=== PATIENT | female | born 1980 | race Caucasian/White ===

== ENCOUNTER → 2016-09-21 | Outpatient (CLI) | payer MEDICAID ==
[~2016-09-21] MED LIST: ADVAIR 250/5028 PUFF IN; ANTIVERT GENERI25 MG PO; CIPRO 500MG TA500 MG PO; CITALOPRAM10 MG PO; FLEXERIL10 MG PO; HYDROXYZINE 25M25 MG PO; KEFLEX 500MG.500 MG PO; LEVSIN/SL0.125 MG SL; LORTAB 5/500 501 TAB PO; LORTAB 500 MG-71 TAB PO; NO HOME MEDS; PREDNISONE 20MG20 MG PO; PYRIDIUM 200MG200 MG PO; ROBAXIN-750750 MG PO; TESSALON PERLE100 MG PO; VENTOLIN H0.09 MG/AC IH; VISTARIL25 MG PO; ZITHROMAX Z PA250 MG PO; ZITHROMAX Z-PA250 M1 PO; ZITHROMAX Z-PA250 M2 PO; ZOFRAN 8MG TABLE8 MG PO; ZOFRAN ODT4 MG PO
--- NOTE | 2016-09-23 13:46 | RADIOLOGY REPORT PS360 ---
US THYROID HISTORY: Follow-up thyroid nodules THYROID NODULE ORDERING PHYSICIAN: Theodore Guzman MD PATIENT AGE: 36 years COMPARISON: 10/10/2015 FINDINGS: The right lobe is 4.6 x 1.6 x 2.4 cm. The left lobe is 4.9 x 1.8 x 2.4 cm. There are multiple nodules on the right including 4 mm cyst mid aspect, 4 mm hypoechoic nodule mid aspect, 4 mm cyst mid aspect, 6 mm hypoechoic nodule inferiorly. There is a 1 cm area of decreased echogenicity along the posterior aspect of the lower pole on the right not demonstrated previously. This is ill-defined may only be due to an area of heterogeneous echogenicity as opposed to a nodule. Probably unchanged. Left lobe: 3 cm hypoechoic nodules inferiorly, 5 mm hypoechoic nodule superiorly, 12 mm hypoechoic nodule posteriorly not readily demonstrated on previous exam but may have been present and not identified. There is a 3 mm hypoechoic nodule in isthmus. IMPRESSION: Multinodular goiter overall not significant change considering difference in scanning technique. Continued 6 month follow-up recommended.
== END ==
LOC: RAD 10:51
DX: E04.1 Nontoxic single thyroid nodule (principal)

== ENCOUNTER → 2017-02-28 | Emergency (ER) | payer MEDICAID ==
[~2017-02-28] VITALS: Ht 180.3 cm; Wt 129.3 kg
[~2017-02-28] MED LIST changes: +BACTRIM DS 8001 TA1 PO; +BENADRYL 50MG C50 MG PO
--- NOTE | 2017-02-28 16:08 | Urgent Treatment Center Report ---
History of Present Issue Date/Time Seen by Provider 02/28/17 1550 Visit Reason Pt arrived:Walked Presenting Problem:PT STATES RASH TO BOTH LEGS THAT BEGAN A WEEK AGO. Location if Accident: Onset of symptoms date/time:/ or onset unknown for:MEDICAL HX UNKNOWN Have you (or family members/close friends) recently traveled outside the [place]? N If Yes, where/when: Have you had exposure to infectious disease within the past month? TB? Other? Specify: c/o mahsa LE redness, swelling, pain and sores x 1 week "this time". Hx of recurrent cellulitis pt reports "for the last year". Last time approx 1 month ago. Typically unilateral "and never this bad". Has cephalexin at home and has been taking it 4x/day x 3-4 days already w/ continue progression of symptoms. Denies fever, aches, chill but + malaise. "I just don't feel good". Denies SOA, CP. Denies any past medical history or current medications other than asthma and rescue inhaler. Reporting DM testing multiple times in the past but "always negative". No known injury. Source patient Exam Limitations no limitations ALLERGIES Coded Allergies: Penicillins (PASSED OUT 08/22/16) Home Medications Reported Medications ALBUTEROL (Ventolin Hfa) 1 PUFF IH Q6H6 History Medical History General CAD? No Angina: No NE: No Hypertension? No Hyperlipidemia? No CHF? No DVT? No PE? No COPD? No Asthma? Yes Anemia? No GERD? No Gastric ulcers? No GI Bleed? No Hernia? No Thyroid Problems? No Hypothyroidism? No CVA? No Seizures? Yes Diabetes? No Renal Insuffiency? No UTI? No Stones? No BPH? No GB Disease: No Nephritic Syndrome? No Asplenia? No Hepatitis? No Sickle Cell Disease? No Arthritis? No Migraines? No Cataracts? No Glaucoma? No MRSA? No HIV? No TB? No Anxiety? No Depression? No Cancer? No More? No Immunization HX DT/Tetanus 1-4 Years Ago Flu NEVER Pneumonia NEVER Surgical Hx Previous Surgery?Y X 1 DENTAL SURGERY Family History Family HX Diabetes Yes CAD No Hypertension Yes Hyperlipidemia Yes Cancer Yes TB No Social History Smoking Hx Smoker: Never Smoker Tobacco: No Alcohol Alcohol: No Review of Systems All Other Systems Reviewed and Negative Constitutional see HPI Respiratory see HPI Cardiovascular see HPI, edema (right worse than left) Gastrointestinal denies abdominal pain, nausea, denies vomiting Musculoskeletal denies joint pain, denies joint swelling, muscle pain ("my legs just ache") Skin see HPI Psychiatric/Neurological denies numbness, denies tingling Physical Exam Vital Signs Vital Signs Date Time Temp Pulse Resp B/P Pulse O2 O2 Flow FiO2 Ox Delivery Rate 02/28 1559 97.9 75 18 152/73 98 General Appearance no apparent distress, obese Respiratory Status No: respiratory distress. Cardiovascular regular rate/rhythm, no peripheral edema, no murmur Peripheral Pulses Pulses normal Yes (PT/DP) Extremities BLE (knee down) w/ generalized redness w/ left worse, generalized swelling w/ right worse, generalized tenderness, both hot to touch, 2-3mm erythematous patches similiar to healing folliculitis, 2mm folliculitis right anterior carney soft. fluctuate, thick drainage present at site Strength 5 Lower Ext (L), 5 Lower Ext (R) Neurologic alert, no motor/sensory deficits, oriented x 3 Mental status normal mood/affect Skin see extremity Medical Decision Making LABS/Meds/Orders Pt receiving controlled substance in ED? No Results/Orders Laboratory Tests 02/28/17 1620: Sodium 140, Potassium 3.5, Chloride 107, Carbon Dioxide 26, BUN 9, Creatinine 0.9, Estimated Creat Clear 175, Estimated GFR (MDRD) 70, Glucose 143 H, Calcium 8.0 L, WBC 6.8, RBC 3.99 L, Hgb 12.1 L, Hct 35.8 L, MCV 89.8, RDW 14.1, Plt Count 191, MPV 7.8, Gran % 72.4, Gran # 5.0, Lymphocytes % 19.6, Monocytes % 5.9 , Eosinophils % 1.8, Basophils % 0.3, Lymphocytes # 1.3, Monocytes # 0.4, Eosinophils # 0.1, Basophils # 0.0, PUBS MCHC 33.9, MCH 30.4 Orders Procedure Date/time Status VENOUS LOWER EXT MAHSA 02/28 1609 Complete CBC WITH AUTO DIFF 02/28 1609 Complete BASIC METABOLIC PROFILE 02/28 1609 Complete Consult MD Physician Consult 1 Consult/PCP Dr. Reyes, ER MD Time Called 1600 Reason Pt. Condition Comments CBC, BMP, venous doppler then will rediscuss pt and if admission necessary Physician Consult 2 Consult/PCP AMAN Khalil at PCP's office Time Called 1700 Reason Pt. Condition Comments Returned call at 1714. Discussed PMHx provided by patient, current symptoms, exam and current findings in clinic. Add bactrim to keflex and have patient FU in clinic Tuesday at 1pm. Progress [facility] Progress Notes Date 02/28/17 Time 1631 Comment pt returned from [place]. Neg for SVT & DVT BLE. Departure Departure Time of Disposition 1714 Disposition DC Home or Self Care(routine) Clinical Impression Primary Impression: Cellulitis of leg, left Secondary Impressions: Cellulitis of leg, right Condition STABLE Referrals Megan WALKER,Theodore Escobedo (Family) Return to ER immediately for new or worsening symptoms. FU in office Tuesday at 1pm. Patient Instructions DI for Cellulitis -- Adult Additional Instructions * Start antibiotic(s) immediately and be sure to take as ordered for the FULL length of time although you should start to see improvement over the next 24-48 hours. * Monitor closely. Outlined redness so that you can monitor easier. FU immediately for new or worsening symptoms ( including but not limited to redness , swelling, red streaking, fever, chills). * ELEVATE both legs as much as possible * Monitor temp. Seek treatment for fever immediately Discharge Counseling Counseled pt/family regarding diagnosis, test results, medications/RX, home care, follow up needs Prescriptions Current Visit Scripts SULFAMETHOXAZOLE W/TRIMETHOPRI (Bactrim Ds Tab) 1 TABLET PO BID #20 TAB CEPHALEXIN (Keflex 500MG Capsule) 500 MG PO QID #40 CAP at 1720
--- NOTE | 2017-02-28 16:27 | CARDIOVASCULAR REPORT ---
"Venous Exam Indications: 729.5 Pain in limb. 782.3 Edema. IMPRESSIONS 1. There is no evidence of significant Reflux. 2. No evidence of deep or superficial vein thrombosis involving the right lower extremity and left lower extremity History: Risk factors: Obese. Complete lower extremity venous duplex evaluation. Doppler flow study including spectral analysis, color and brown scale imaging. Location: Vascular laboratory. Patient status: Outpatient. Tables: Venous flow and imaging: + + + + |Location |Overall |Flow properties | + + + + |Right common femoral |Patent |Normal phasicity; | | | |spontaneous; normal | | | |augmentation; compressible | + + + + |Right saphenofemoral |Patent |Compressible | |junction | | | + + + + |Right profunda femoral |Patent |Compressible | + + + + |Right femoral |Patent |Normal phasicity; | | | |spontaneous; normal | | | |augmentation; compressible;| | | |no reflux | + + + + |Right greater saphenous |Patent |Normal phasicity; | | | |spontaneous; normal | | | |augmentation; compressible | + + + + |Right popliteal |Patent |Normal phasicity; | | | |spontaneous; normal | | | |augmentation; compressible | + + + + |Right posterior tibial |Difficult |Compressible | | |study | | + + + + |Right peroneal |Difficult |Compressible | | |study | | + + + + |Right gastrocnemius |Not visualized| | + + + + |Right soleal |Not visualized| | + + + + |Left common femoral |Patent |Normal phasicity; | | | |spontaneous; normal | | | |augmentation; compressible | + + + + |Left saphenofemoral junction|Patent |Compressible | + + + + |Left profunda femoral |Patent |Compressible | + + + + |Left femoral |Patent |Normal phasicity; | | | |spontaneous; normal | | | |augmentation; compressible | + + + + |Left greater saphenous |Patent |Normal phasicity; | | | |spontaneous; normal | | | |augmentation; compressible | + + + + |Left popliteal |Patent |Normal phasicity; | | | |spontaneous; normal | | | |augmentation; compressible | + + + + |Left posterior tibial |Difficult |Compressible | | |study | | + + + + |Left peroneal |Difficult |Compressible | | |study | | + + + + |Left gastrocnemius |Patent |Compressible | + + + + |Left soleal |Patent |Compressible | + + + + (Report amended ) Electronically signed by: Dagoberto Clark [id number]"
[2017-02-28 16:29] LABS: HEMOGLOBIN 12.1 g/dL (12.2-16.2); LYMPH # 1.3 K/mm3 (0.7-4.5); LYMPH % 19.6 % (10-50.0)
[2017-02-28 17:21] VITALS: BP 152/73
== END ==
LOC: UTC 15:50
PROVIDERS: Nurse Practitioner Family
DX: L03.116 Cellulitis of left lower limb (principal); L03.115 Cellulitis of right lower limb; M79.662 Pain in left lower leg; M79.661 Pain in right lower leg

== ENCOUNTER → 2017-04-28 | Outpatient (CLI) | payer MEDICAID ==
--- NOTE | 2017-04-28 15:13 | RADIOLOGY REPORT PS360 ---
PROCEDURE: 2-D M-mode and color Doppler study INDICATIONS FOR THE TEST: Chest pain COPD Heart Murmur Tobacco Smoking Palpitations Fatigue Syncope EdemaX Hypertension Diabetes Mellitus Rheumatic Fever SOBXDOE Obesity Hyperlipidemia Family History HD Additional History PATIENT INFORMATION HEIGHT: 71 WEIGHT:285 GENDER: Female B/P:110/70 2-D/M-MODE INTERPRETATION: 2-D MEASUREMENTS OBSERVED VALUES IN CMS Right Ventricular Dimension (RVDd) 2.4 Interventricular Septum (Thickness)(IVsd) .9 Left Ventricular Internal Dimensions(LVIDd) 5.5 Left Ventricular Posterior Wall (Thickness)(LVPWd) .9 Aortic Root 3.6 Aortic Cusp Separation 1.9 Left Atrial Dimensions (LAD) 3.4 2D 1. Left atrium is normal size, left ventricle is normal size, there is no concentric left ventricular hypertrophy, visually estimated ejection fraction of 55% with no obvious regional wall motion abnormality. 2. The right atrium and right ventricle are normal size and contractility. 3. The aortic, mitral and tricuspid valve are structurally normal. 4. The pulmonic valve is poorly visualized. 5. No significant pericardial effusion noted. DOPPLER INTERROGATION: Doppler interrogation of the aortic, mitral and tricuspid valvular presence of mild mitral and tricuspid regurgitation, tricuspid and jet velocity insufficient for calculation of the right ventricular systolic pressure, diastolic parameters are within normal range. CONCLUSION: 1. Normal left ventricular size, preserved left ventricular systolic function, visually estimated ejection fraction 55% with no obvious regional wall motion abnormality. Diastolic parameters are within normal range. 2. Mild mitral and tricuspid regurgitation. 3. No significant pericardial effusion noted.
== END ==
LOC: RT 12:41
DX: R60.0 Localized edema (principal); J45.909 Unspecified asthma, uncomplicated; E04.2 Nontoxic multinodular goiter